=== PATIENT | male | born 1960 | race Caucasian/White ===

== ENCOUNTER 2022-01-16 09:21 | Inpatient (IN) | payer BC ==
[2022-01-16] VITALS (10 sets, daily range): BP systolic 109–136; BP diastolic 73–89
[~2022-01-16] VITALS: Ht 188 cm; Wt 110.5 kg
[~2022-01-16 09:21] MED LIST: APIX5TAB PO; ATEN-60 PO
[2022-01-16] MEDS ORDERED: SUCCINYLCHOLINE CHLORIDE 20 MG/ML 10ML VIAL IV ONE (11:35)
[2022-01-16] MEDS ORDERED: TRANEXAMIC ACID 20 ML ONE (11:44)
[2022-01-16] MEDS ORDERED: TETRACAINE 1% INJ 2 ML VIAL IJ ONE (11:53)
[2022-01-16] MEDS ORDERED: fentaNYL CITRATE 100 MCG/2 ML VL ONE (11:55)
[2022-01-16] MEDS ORDERED: MORPHINE SULF PF 5 MG/10 ML VIAL ONE (11:56)
[2022-01-16] MEDS ORDERED: MIDAZOLAM HCL 2MG/2ML 2ml VIAL (1mg/ml) ONE (11:56)
[2022-01-16] MEDS: ROPIVACAINE 0.5% (5MG/ML) 20ML AMPULE IJ ONE ×2 (13:32→17:52)
[2022-01-16] MEDS ORDERED: PROPOFOL 10 MG/ML 20 ML IV ONE (14:25)
[2022-01-16] MEDS ORDERED: ONDANSETRON HCL 4 MG/2 ML VIAL ONE (14:25)
[2022-01-16] MEDS ORDERED: METOCLOPRAMIDE HCL 5MG/ml INJ 2ml VIAL ONE (14:25)
[2022-01-16] MEDS ORDERED: DexAMETHasone SOD PHOS 10MG/1ML VIAL INJ ONE (14:25)
[2022-01-16] MEDS ORDERED: ONDANSETRON HCL 4 MG/2 ML VIAL IV PRN ×2 (15:15)
[2022-01-16] MEDS ORDERED: NALOXONE HCL 0.4 MG/ML VIAL IV PRN ×2 (15:15)
[2022-01-16] MEDS ORDERED: diphenhdrAMINE HCL 50 MG/1 ML VL IV PRN (15:15)
[2022-01-16] MEDS: D5W/LACTATED RINGERS 1,000 ML IV SCH (15:15)
[2022-01-16] MEDS ORDERED: METOCLOPRAMIDE HCL 5MG/ml INJ 2ml VIAL IV PRN (15:15)
[2022-01-16] MEDS ORDERED: oxyCODONE HCL 5MG TAB PO PRN (15:15)
[2022-01-16] MEDS ORDERED: HYDROmorphone HCL 2 MG/ML VL/or syr IV PRN ×4 (15:15)
[2022-01-16] MEDS: ACETAMINOPHEN 325 MG TAB PO SCH (17:52)
[2022-01-16] MEDS: ceFAZolin 2 GM in D5W 5% 100 ML IV SCH (21:06)
[2022-01-16] MEDS: PREGABALIN 25 MG CAP PO SCH (21:06)
[2022-01-17] VITALS (18 sets, daily range): BP systolic 103–135; BP diastolic 58–85
[2022-01-17] MEDS: ACETAMINOPHEN 325 MG TAB PO SCH ×5 (00:41→23:53)
[2022-01-17] MEDS: ceFAZolin 2 GM in D5W 5% 100 ML IV SCH (05:41)
[2022-01-17] MEDS: D5W/LACTATED RINGERS 1,000 ML IV SCH ×3 (05:41→18:00)
[2022-01-17 06:01] LABS: Basophils # (auto) 0 10 ^3/uL (0-0.2); Eosinophils # (auto) 0 10 ^3/uL (0-0.8); Hematocrit 38.5 % (41.0-53.0); Hemoglobin 12.9 g/dL (13.5-17.5); Lymphocytes # (auto) 0.9 10 ^3/uL (0.4-5.4); Lymphocytes % (auto) 8.7 % (10.0-50.0); Mean Corpuscular Hemoglobin 31.7 pg (28.0-32.0); Mean Corpuscular Hgb Conc. 33.5 g/dL (32.0-36.0); Mean Corpuscular Volume 94.8 fL (80.0-100.0); Monocytes # (auto) 0.6 10 ^3/uL (0-1.3); Monocytes % (auto) 5.6 % (0.0-12.0); Neutrophils # (auto) 8.7 10 ^3/uL (1.6-8.6); Neutrophils % (auto) 85.7 % (37.0-80.0); Nucleated Red Blood Cells % 0.1 %; Red Blood Cells 4.06 10^6/uL (4.5-5.90); Red Cell Distribution Width 13.4 % (11.8-14.3); White Blood Cell 10.2 10^3/uL (4.4-10.8)
[2022-01-17 06:16] LABS: Calcium 8.7 mg/dL (8.5-10.1); Potassium 4.9 mmol/L (3.5-5.1)
[2022-01-17] MEDS: APIXABAN 2.5 MG TAB PO SCH ×2 (09:42→22:02)
[2022-01-17] MEDS: PREGABALIN 25 MG CAP PO SCH ×2 (09:42→22:02)
[2022-01-17] MEDS: ATENOLOL 25 MG TAB PO SCH (09:44)
[2022-01-17] MEDS: oxyCODONE HCL 5MG TAB PO PRN ×3 (12:43→18:42)
[2022-01-17] MEDS ORDERED: guaiFENesin-DM 100/10mg/5ml SYR PO PRN (15:30)
[2022-01-17 19:42] LABS: Basophils # (auto) 0 10 ^3/uL (0-0.2); Basophils % (auto) 0.1 % (0.0-2.0); Eosinophils # (auto) 0 10 ^3/uL (0-0.8); Eosinophils % (auto) 0.1 % (0.0-7.0); Hematocrit 36.4 % (41.0-53.0); Hemoglobin 11.9 g/dL (13.5-17.5); Lymphocytes # (auto) 1.4 10 ^3/uL (0.4-5.4); Lymphocytes % (auto) 18.1 % (10.0-50.0); Mean Corpuscular Hemoglobin 30.8 pg (28.0-32.0); Mean Corpuscular Hgb Conc. 32.6 g/dL (32.0-36.0); Mean Corpuscular Volume 94.5 fL (80.0-100.0); Monocytes # (auto) 0.7 10 ^3/uL (0-1.3); Monocytes % (auto) 9.2 % (0.0-12.0); Neutrophils # (auto) 5.6 10 ^3/uL (1.6-8.6); Neutrophils % (auto) 72.5 % (37.0-80.0); Red Blood Cells 3.85 10^6/uL (4.5-5.90); Red Cell Distribution Width 13.4 % (11.8-14.3); White Blood Cell 7.8 10^3/uL (4.4-10.8)
[2022-01-17 19:53] LABS: Calcium 8.5 mg/dL (8.5-10.1); Potassium 4.3 mmol/L (3.5-5.1)
[2022-01-17 19:55] LABS: BUN/Creatinine Ratio 16.8
[2022-01-17] MEDS ORDERED: SODIUM CHLORIDE 0.9% 1,000 ML IV ONE (20:45)
[2022-01-18 05:00] VITALS: BP 148/88
[2022-01-18] MEDS: ACETAMINOPHEN 325 MG TAB PO SCH ×2 (06:06→12:46)
[2022-01-18 08:00] VITALS: BP 143/74
[2022-01-18 09:00] VITALS: BP 143/74
[2022-01-18 09:08] VITALS: BP_SYST 131; BP_SYST 141; BP_SYST 149; BP_DIAS 73; BP_DIAS 77; BP_DIAS 78
[2022-01-18] MEDS ORDERED: HYDROcodone-ACET 5/325MG TAB PO PRN (10:30)
[2022-01-18] MEDS: APIXABAN 2.5 MG TAB PO SCH (10:48)
[2022-01-18] MEDS: PREGABALIN 25 MG CAP PO SCH (10:48)
[2022-01-18] MEDS: D5W/LACTATED RINGERS 1,000 ML IV SCH ×2 (10:48→17:15)
[2022-01-18] MEDS: ATENOLOL 25 MG TAB PO SCH (10:49)
== END 2022-01-18 17:20 | disposition home health service (06) | DRG 470 ==
LOC: SUR 09:21 → TELE 15:03 → TELE-EAST 15:52
PROVIDERS: ADMIT Orthopaedic Surgery; ATTEND Orthopaedic Surgery
PROC: 0SRC069 Replacement of Right Knee Joint with Oxidized Zirconium on Polyethylene Synthetic Substitute, Cemented, Open Approach (ICD-10-PCS; principal; 2022-01-16 11:58)
DX: M17.11 Unilateral primary osteoarthritis, right knee (principal); R55 Syncope and collapse; I10 Essential (primary) hypertension; I48.91 Unspecified atrial fibrillation; Z96.652 Presence of left artificial knee joint; Z20.822 Contact with and (suspected) exposure to COVID-19; Z79.01 Long term (current) use of anticoagulants; Z82.49 Family history of ischemic heart disease and other diseases of the circulatory system
CPT/HCPCS: 36415; 70450; 73562; 80048; 84484; 85025; 86850; 86900; 86901; 93306; 97116; 97163; 97530; C1713; G0378; J0330; J0690; J1100; J2250; J2405; J2704; J7060